=== PATIENT | male | born 1985 | race Caucasian/White ===

== ENCOUNTER 2017-08-30 15:14 | Emergency (ER) | payer OTHER ==
[~2017-08-30] VITALS: Ht 180.3 cm; Wt 84.1 kg
[~2017-08-30 15:14] MED LIST: AZOR 5/20 MG1 TABLET PO; INDOCIN25 MG PO; METHADONE5 MG PO; METOPROLOL TART25 MG PO; NASONEX17 GM BOTH NARES; PREDNISONE50 MG PO; TOPROL XL50 MG PO; VIBRAMYCIN100 MG PO
[2017-08-30 18:11] LABS: HEMATOCRIT 45.3 % (38.0-50.0); HEMOGLOBIN 15.5 G/DL (12.5-16.6); MCH 29.1 PG (29.0-34.0); MCHC 34.2 G/DL (30.0-36.0); MCV 85.2 FL (86-99); PLATELET COUNT 336 K/uL (156-360); RBC DIS.WIDTH-CV 12.5 % (11.8-14.6); RBC DIS.WIDTH-SD 38.2 % (39-53); RED BLOOD COUNT 5.32 M/uL (4.00-5.50); WHITE BLOOD COUNT 13.4 K/uL (4.1-10.2)
[2017-08-30 18:19] LABS: CHLORIDE 102 mEq/L (99-109); POTASSIUM 3.9 mEq/L (3.7-5.4); SODIUM 140 mEq/L (136-147)
[2017-08-30 18:21] LABS: GLUCOSE 69 mg/dL (70-99)
[2017-08-30 18:24] LABS: SERUM ETHYL ALCOHOL 99 mg/dL
[2017-08-30 18:25] LABS: CREATININE 0.8 mg/dL (0.6-1.3); GFR ESTIMATE (CALCULATED) > 59 mL/min/ (58.99-99999)
[2017-08-30 18:26] LABS: UREA NITROGEN (BUN) 9 mg/dL (9-23)
[2017-08-30 18:28] LABS: ACETAMINOPHEN (TYLENOL) < 10 mcg/mL (10-30); SALICYLATE < 5.0 MG/DL (15-30)
[2017-08-30 20:16] VITALS: BP 104/64
== END 2017-08-30 20:19 | disposition home or self-care (01) ==
LOC: EME 15:14
PROVIDERS: Emergency Medicine
DX: F32.9 Major depressive disorder, single episode, unspecified (principal); F41.9 Anxiety disorder, unspecified; Z04.6 Encounter for general psychiatric examination, requested by authority; I10 Essential (primary) hypertension; F17.200 Nicotine dependence, unspecified, uncomplicated; Z88.0 Allergy status to penicillin; Z88.1 Allergy status to other antibiotic agents
CPT/HCPCS: 80048; 85027; 90837; 99281; 99284; G0480